=== PATIENT | male | born 1970 | race Caucasian/White ===

== ENCOUNTER 2018-11-02 14:22 | Emergency (ER) | payer OTHER ==
[~2018-11-02] VITALS: Ht 188 cm; Wt 98.3 kg
[2018-11-02] MEDS ORDERED: WELLTAB38 PO (14:36)
[2018-11-02] MEDS ORDERED: [UNRECOGNIZED DRUG - CODE] PO (14:36)
[2018-11-02] MEDS ORDERED: PRIL20TA2 PO (14:36)
[2018-11-02] MEDS ORDERED: CELE100C PO (14:36)
[2018-11-02] MEDS ORDERED: ZYRTTAB8 PO (14:36)
[2018-11-02] MEDS ORDERED: CIAL5TAB PO (14:36)
[2018-11-02] MEDS ORDERED: GABA-843 PO (14:36)
[2018-11-02] MEDS ORDERED: BACL10TA2 PO (14:36)
[2018-11-02] MEDS ORDERED: VALI10TA PO (14:36)
[2018-11-02] MEDS ORDERED: NS 1,000 ML IV ONE (14:45)
[2018-11-02 15:16] LABS: BASO % 0.2 % (0.0-1.0); EOS % 0.1 % (0.0-3.0); HEMATOCRIT 47.1 % (42.0-52.0); HEMOGLOBIN 16.4 g/dl (13.5-17.5); LYMPH # 0.6 10^3/uL (1.5-4.5); LYMPH % 4.7 % (24.0-44.0); MEAN CORPUSCULAR HEMOGLOBIN 31.9 pg (27.0-33.0); MEAN CORPUSCULAR HGB CONC 34.8 g/dl (32.0-36.5); MEAN CORPUSCULAR VOLUME 91.6 fl (80.0-96.0); MONO # 0.6 10^3/uL (0.0-0.8); NEUTROPHILS % 89.5 % (36.0-66.0); PLATELET COUNT, AUTOMATED 237 10^3/uL (150-450); RED BLOOD COUNT 5.14 10^6/uL (4.30-6.10); WHITE BLOOD COUNT 12.3 10^3/uL (4.0-10.0)
[2018-11-02] MEDS ORDERED: KETOROLAC 30 MG/ML VIAL (J1885) IV ONE (15:30)
[2018-11-02] MEDS ORDERED: ONDANSETRON 4MG/2ML VIAL (J2405) IV ONE (15:30)
[2018-11-02] MEDS ORDERED: KETOROLAC 30 MG/ML VIAL (J1885) As Ordered ONE (15:35)
[2018-11-02 15:37] LABS: ALBUMIN 4.2 GM/DL (3.2-5.2); ALT/SGPT 25 U/L (12-78); BILIRUBIN,DIRECT 0.2 MG/DL (0.0-0.2); BILIRUBIN,TOTAL 0.8 MG/DL (0.2-1.0); BLOOD UREA NITROGEN 12 MG/DL (7-18); CALCIUM LEVEL 9.2 MG/DL (8.5-10.1); CARBON DIOXIDE LEVEL 25 MEQ/L (21-32); CHLORIDE LEVEL 102 MEQ/L (98-107); CREATININE FOR GFR 1.31 MG/DL (0.70-1.30); GLOMERULAR FILTRATION RATE > 60.0 (>60); GLUCOSE, FASTING 105 MG/DL (70-100); LIPASE 131 U/L (73-393); SODIUM LEVEL 138 MEQ/L (136-145); TOTAL PROTEIN 7.7 GM/DL (6.4-8.2)
[2018-11-02] MEDS ORDERED: ISOVUE-370 76% 100ML VIAL (Q9967) As Ordered ONE (15:40)
--- NOTE | 2018-11-02 16:12 | REP ---
CT abdomen and pelvis with IV but without oral contrast: History: Rule out appendicitis. CT contrast dose: 100 ml of intravenous Isovue 370. CT findings: Digital preliminary resistance brazer radiograph shows a few loops of air-filled small bowel in the central abdomen and air in the transverse colon. Question ileus. The lung bases are essentially clear. There is no evidence of pleural effusion. The liver and the spleen are normal in size and homogeneous in texture. No adrenal lesion is seen on either side. Pancreas and gallbladder are unremarkable. No retroperitoneal mass or adenopathy is observed. The kidneys enhance symmetrically and are morphologically intact. There is no evidence of hydronephrosis or urinary tract calculus. A normal appendix is seen in the right lower quadrant. There is some mild mural thickening diffusely involving the large intestine most pronounced in the transverse and left colonic segments. This may reflect enterocolitis. Liquid content is seen in the colon. No small bowel mural thickening is appreciated. No obstructive lesion is seen. No abdominal wall defect is observed. Prostate, seminal vesicles, and urinary bladder are unremarkable. There is no evidence of free intraperitoneal air. No abdominal wall defect is seen. No bony destructive lesion is observed. Impression: Normal appendix seen. Mild to moderate essentially diffuse mural thickening in the colon, question enterocolitis. No other abnormality seen. Electronically Signed by Dave Garcias MD 11/02/2018 04:14 P
[2018-11-02] MEDS ORDERED: ACETAMINOPHEN 500 MG TAB PO ONE (16:45)
[2018-11-02] MEDS ORDERED: NS 500 ML IV ONE (19:30)
[2018-11-02] MEDS ORDERED: CIPR-249 PO ×2 (20:43→21:01)
[2018-11-02] MEDS ORDERED: CIPROFLOXACIN 500 MG TAB PO ONE (21:00)
[2018-11-02 21:01] VITALS: BP 119/76
== END 2018-11-02 21:15 | disposition home or self-care (01) ==
LOC: M ED 14:22
DX: A04.5 Campylobacter enteritis (principal); B96.29 Other Escherichia coli [E. coli] as the cause of diseases classified elsewhere; F43.10 Post-traumatic stress disorder, unspecified; K21.9 Gastro-esophageal reflux disease without esophagitis; Z79.899 Other long term (current) drug therapy
CPT/HCPCS: 74177; 80048; 80076; 81001; 83690; 85025; 87507; 96374; 96375; 99284; J1885; J2405; Q9967